=== PATIENT | male | born 1990 | race Caucasian/White ===

== ENCOUNTER 2021-02-25 14:51 | Emergency (ER) | payer BC ==
[~2021-02-25] VITALS: Ht 185.4 cm; Wt 131.8 kg
[~2021-02-25 14:51] MED LIST: CEPHALEXIN500 MG PO; CIPROFLOXACN500 MG PO; FLAGYL500 MG PO; NO HOME MEDS; PROMETHAZINE25 MG OR; ZOFRAN ODT4 MG PO
[2021-02-25] MEDS ORDERED: CVS IBUPROFEN200 M3 PO (15:17)
[2021-02-25] MEDS ORDERED: CYCLOBENZAPRINE10 MG PO (15:32)
[2021-02-25] MEDS ORDERED: TRAMADOL HYDROC50 M1 PO (15:32)
[2021-02-25] MEDS ORDERED: IBUPROFEN600 MG PO (15:32)
[2021-02-25 15:41] VITALS: BP 160/106
== END 2021-02-25 15:41 | disposition home or self-care (01) | DRG 563 ==
LOC: ED 14:51
DX: S46.912A Strain of unspecified muscle, fascia and tendon at shoulder and upper arm level, left arm, initial encounter (principal); X50.3XXA Overexertion from repetitive movements, initial encounter; Y93.64 Activity, baseball; Y92.009 Unspecified place in unspecified non-institutional (private) residence as the place of occurrence of the external cause